=== PATIENT | female | born 1965 | race Two or more races ===

== ENCOUNTER 2024-03-23 12:18 | Outpatient (CLI) | payer OTHER, SELFPAY ==
[2024-03-22 15:20] VITALS: BMI 41.5
[2024-03-23] VITALS (12 sets, daily range): BP systolic 121–174; BP diastolic 65–104; PULSE 83–96; RESP 11–22; TEMP 36.4–36.8; O2SAT 92–99
--- NOTE | 2024-03-23 13:00 | XR_ITS ---
Examination: MRI shoulder,right, without contrast. Intravenous conscious sedation Exam date and time:March 23, 2024 at 1612 hours Comparison November 27, 2021. Technique: Multiple axial, sagittal and coronal sections of the shoulder have been obtained. Siemens high-resolution 1.5 Fani, MRI scanner is utilized. Axial fat suppressed sections, TR 2350, TE 18. T1 weighted coronal images, TR 500, TE 15. T2-weighted sagittal fat saturated images, TR 3500, TE 57 T1 weighted sagittal sections, TR 504, TE 13. Under physician supervision, 2 mg Versed 50 mcg fentanyl administered intravenously for moderate sedation. Pulse oximetry, heart rate, blood pressure continuously monitored with an independent training observer present. The physician spent 15 minutes of [id number] sedation time with the patient Findings: Coronal image 15 suspicious for 3 cm full-thickness rotator cuff tear Long head biceps is in the bicipital groove. No tear of biceps superior labral anchor is seen. Retraction musculotendinous junction rotator cuff is mild Tendinosis pattern is moderate Atrophy supraspinatus muscle is moderate Atrophy infraspinatus muscle is moderate Horizontal acromion. Acromioclavicular joint intact. Os acromiale is not identified. Patient motion degrades labral margin detail Bony glenoid fossa no osseous defect. Avascular necrosis is not seen. Defect posterolateral margin humeral head not seen. Impression: Recommend this patient return for shoulder arthrography followed by MRI post intra-articular contrast to exclude full-thickness rotator cuff tear
[2024-03-23] MEDS: MIDAZOLAM INJ 1 MG/ML VIAL 2 ML 2 MG IV (13:12)
[2024-03-23] MEDS: fentaNYL CIT INJ 50 mCg/ML AMP 2ML IVP (13:12)
== END 2024-03-23 14:40 | disposition home or self-care (01) ==
PROVIDERS: Referring Provider Family Medicine; Visit Provider Family Medicine
DX: S43.81XD Sprain of other specified parts of right shoulder girdle, subsequent encounter (principal); X58.XXXD Exposure to other specified factors, subsequent encounter
CPT/HCPCS: 73223; 99152; 99153; J2250; J3010

== ENCOUNTER → 2025-01-17 | Outpatient (CLI) | payer MEDICAID, SELFPAY ==
--- NOTE | 2025-01-17 08:45 | XR_ITS ---
Examination: Screening digital mammography, bilateral Computer aided detection 3-D breast Tomosynthesis, bilateral Date and time of exam: January 17, 2025, 0850 hours, compared to mammograms dating to April 08, 2016 Indication: Screening Technique: Nonmagnified MLO, CC views of the breasts to been obtained, reconstructed from 3-D Tomosynthesis images. R2 computer aided detection program utilized for evaluation of suspicious masses and/or abnormal calcifications. 3-D Tomosynthesis images obtained. Findings: Scattered areas of fibroglandular density Benign calcifications. No interval suspicious masses Impression: BI-RADS category II: Benign Findings. Recommend 1 year follow-up mammogram.
== END | disposition home or self-care (01) ==
PROVIDERS: Referring Provider Nurse Practitioner Primary Care; Visit Provider Nurse Practitioner Primary Care
DX: Z12.31 Encounter for screening mammogram for malignant neoplasm of breast (principal); R92.323 Mammographic fibroglandular density, bilateral breasts; R92.1 Mammographic calcification found on diagnostic imaging of breast
CPT/HCPCS: 77063; 77067